=== PATIENT | male | born 1975 | race Caucasian/White ===

== ENCOUNTER → 2020-09-17 | Outpatient (CLI) | payer OTHER | LOC: SLEEP-COR 10:12 | DX: R29.818 Other symptoms and signs involving the nervous system (principal) | CPT/HCPCS: 95810 ==

== ENCOUNTER → 2020-12-09 | Outpatient (CLI) | payer OTHER | LOC: ECHO 11:21 → MRI 13:00 | DX: R55 Syncope and collapse (principal); F17.200 Nicotine dependence, unspecified, uncomplicated | CPT/HCPCS: ECHO; 70551; 93306 ==